=== PATIENT | female | born 1945 | race Hispanic/Latino ===

== ENCOUNTER → 2018-02-16 | Outpatient (CLI) | payer OTHER | LOC: RAH 10:51 | PROVIDERS: ATTEND Internal Medicine | DX: Z12.31 Encounter for screening mammogram for malignant neoplasm of breast (principal) | CPT/HCPCS: 77067 ==

== ENCOUNTER → 2018-04-13 | Outpatient (CLI) | payer OTHER ==
[~2018-04-13] MED LIST: IOPAMIDOL-370 100 ML VIAL IV ONE
== END | disposition home or self-care (01) ==
LOC: OIH 08:18
PROVIDERS: ATTEND Internal Medicine Cardiovascular Disease
DX: I70.1 Atherosclerosis of renal artery (principal); I70.0 Atherosclerosis of aorta; Z90.710 Acquired absence of both cervix and uterus
CPT/HCPCS: 74175; Q9967

== ENCOUNTER → 2020-03-09 | Outpatient (CLI) | payer OTHER | END | disposition home or self-care (01) | LOC: SHCH 11:15 | PROVIDERS: ATTEND Internal Medicine Cardiovascular Disease | DX: R01.1 Cardiac murmur, unspecified (principal) | CPT/HCPCS: 93306; 93356 ==

== ENCOUNTER → 2020-03-22 | Outpatient (CLI) | payer OTHER | END | disposition home or self-care (01) | LOC: SHCH 08:51 | PROVIDERS: ATTEND Internal Medicine Cardiovascular Disease | DX: R09.89 Other specified symptoms and signs involving the circulatory and respiratory systems (principal) | CPT/HCPCS: 93880; 93975 ==

== ENCOUNTER → 2020-09-07 | Outpatient (CLI) | payer OTHER | END | disposition home or self-care (01) | LOC: RAH 12:42 | PROVIDERS: ATTEND Internal Medicine | DX: K57.30 Diverticulosis of large intestine without perforation or abscess without bleeding (principal); R10.12 Left upper quadrant pain; J98.11 Atelectasis; I70.8 Atherosclerosis of other arteries | CPT/HCPCS: 74176 ==

== ENCOUNTER → 2020-10-13 | Outpatient (CLI) | payer OTHER | END | disposition home or self-care (01) | LOC: RAH 07:47 | PROVIDERS: ATTEND Internal Medicine Gastroenterology | DX: K83.8 Other specified diseases of biliary tract (principal); R93.2 Abnormal findings on diagnostic imaging of liver and biliary tract | CPT/HCPCS: 74181 ==

== ENCOUNTER 2020-11-10 07:25 | Day surgery (SDC) | payer OTHER ==
[~2020-11-10] VITALS: Ht 157.5 cm; Wt 64.9 kg
[2020-11-10] VITALS (21 sets, daily range): BP systolic 127–161; BP diastolic 59–83
[~2020-11-10 07:25] MED LIST changes: -IOPAMIDOL-370 100 ML VIAL IV ONE; +SODIUM CHLORIDE 0.9% 1000ML 1,000 ML IV ONE
[2020-11-10] MEDS ORDERED: AMLO2.5T4 PO (09:04)
[2020-11-10] MEDS ORDERED: ASPI-1197 PO (09:04)
[2020-11-10] MEDS ORDERED: SIMV-43 PO (09:04)
[2020-11-10] MEDS ORDERED: OMEP40CA13 PO (09:04)
[2020-11-10] MEDS ORDERED: METO-408 PO (09:04)
[2020-11-10] MEDS ORDERED: BENA40TA9 PO (09:04)
[2020-11-10] MEDS ORDERED: INDOMETHACIN 50 MG SUPP.RECT RC SCH (09:15)
[2020-11-10] MEDS ORDERED: IOHEXOL-350 50ML VIAL IV ONE (11:01)
[2020-11-10] MEDS ORDERED: ROCURONIUM 10MG/1ML SYR 10 MG/ML ML ONE (11:04)
[2020-11-10] MEDS ORDERED: FENTANYL CITRATE PF 50 MCG/1 ML 2ML VIAL ONE (11:04)
[2020-11-10] MEDS ORDERED: PROPOFOL 10 MG/ML 20ML VIAL IV ONE (11:04)
[2020-11-10] MEDS ORDERED: SUCCINYLCHOLINE 200MG/10ML SYR ONE (11:04)
[2020-11-10] MEDS ORDERED: LIDOCAINE PF 2% 5ML ABBOJECT ONE (11:04)
[2020-11-10] MEDS ORDERED: ONDANSETRON HCL 4 MG/2 ML VIAL ONE (11:05)
[2020-11-10] MEDS ORDERED: EPINEPHRINE 1 MG/ML AMPULE ONE (12:05)
[2020-11-10] MEDS ORDERED: FAMOTIDINE/PF 20 MG/2 ML VIAL IV ONE (12:20)
== END 2020-11-10 14:01 | disposition home or self-care (01) ==
LOC: ENDO 07:25 → DAH 07:25 → ENDO 14:01
PROVIDERS: ATTEND Internal Medicine Gastroenterology
DX: K83.8 Other specified diseases of biliary tract (principal); R93.2 Abnormal findings on diagnostic imaging of liver and biliary tract; Z20.828 Contact with and (suspected) exposure to other viral communicable diseases; R74.8 Abnormal levels of other serum enzymes; I10 Essential (primary) hypertension; E78.5 Hyperlipidemia, unspecified; Z88.8 Allergy status to other drugs, medicaments and biological substances; Z79.899 Other long term (current) drug therapy; Z98.890 Other specified postprocedural states; Z79.82 Long term (current) use of aspirin; Z90.710 Acquired absence of both cervix and uterus; Z91.018 Allergy to other foods; Z86.010 Personal history of colon polyps; Z87.442 Personal history of urinary calculi; Z98.49 Cataract extraction status, unspecified eye; Z87.19 Personal history of other diseases of the digestive system
CPT/HCPCS: 43262; 43264; 74330; A4215 ×2; A4222; A4223; A4606; A4657 ×2; A4663; C1769; C1773; C9803; J0171; J0330; J2001; J2405; J2704; J3010; J3490; J7030; Q9967; U0003; 43259

== ENCOUNTER → 2021-03-22 | Outpatient (CLI) | payer MEDICARE ==
[~2021-03-22] MED LIST changes: +AMLO2.5T4 PO; +ASPI-1197 PO; +BENA40TA9 PO; +METO-408 PO; +OMEP40CA13 PO; +SIMV-43 PO; -SODIUM CHLORIDE 0.9% 1000ML 1,000 ML IV ONE
== END | disposition home or self-care (01) ==
LOC: RAH 14:50
PROVIDERS: ATTEND Internal Medicine
DX: M79.662 Pain in left lower leg (principal); Z96.652 Presence of left artificial knee joint
CPT/HCPCS: 73560; 93971

== ENCOUNTER → 2021-12-26 | Outpatient (CLI) | payer MEDICARE ==
[~2021-12-26] MED LIST changes: -BENA40TA9 PO; +BENA40TA92 PO; -OMEP40CA13 PO; +OMEP40CA21 PO
== END | disposition home or self-care (01) ==
LOC: SHCH 09:42
PROVIDERS: ATTEND Internal Medicine Cardiovascular Disease
DX: I70.203 Unspecified atherosclerosis of native arteries of extremities, bilateral legs (principal); I10 Essential (primary) hypertension
CPT/HCPCS: 93306; 93925

== ENCOUNTER → 2022-07-04 | Outpatient (CLI) | payer MEDICARE | END | disposition home or self-care (01) | LOC: RAH 14:33 | PROVIDERS: ATTEND Internal Medicine | DX: R07.81 Pleurodynia (principal) | CPT/HCPCS: 71101 ==

== ENCOUNTER → 2023-03-11 | Outpatient (CLI) | payer MEDICARE | END | disposition home or self-care (01) | LOC: RAH 13:04 | PROVIDERS: ATTEND Internal Medicine Endocrinology, Diabetes & Metabolism | DX: E04.2 Nontoxic multinodular goiter (principal) | CPT/HCPCS: 76536 ==

== ENCOUNTER → 2023-04-03 | Outpatient (CLI) | payer MEDICARE | END | disposition home or self-care (01) | LOC: RAH 13:55 | PROVIDERS: ATTEND Internal Medicine | DX: R07.81 Pleurodynia (principal) | CPT/HCPCS: 71046; 71100 ==

== ENCOUNTER → 2024-01-15 | Outpatient (CLI) | payer MEDICARE | END | disposition home or self-care (01) | LOC: RAH 09:55 | PROVIDERS: ATTEND Nurse Practitioner Family | DX: M47.816 Spondylosis without myelopathy or radiculopathy, lumbar region (principal); M54.6 Pain in thoracic spine | CPT/HCPCS: 72070 ==

== ENCOUNTER → 2024-03-09 | Outpatient (CLI) | payer MEDICARE | END | disposition home or self-care (01) | LOC: RAH 10:58 | PROVIDERS: ATTEND Internal Medicine Endocrinology, Diabetes & Metabolism | DX: E04.2 Nontoxic multinodular goiter (principal) | CPT/HCPCS: 76536 ==

== ENCOUNTER → 2024-03-10 | Outpatient (CLI) | payer MEDICARE | END | disposition home or self-care (01) | LOC: RAH 12:03 | PROVIDERS: ATTEND Internal Medicine | DX: M79.661 Pain in right lower leg (principal); R60.0 Localized edema | CPT/HCPCS: 93971 ==

== ENCOUNTER 2024-03-23 08:28 | Day surgery (SDC) | payer MEDICARE ==
[2024-03-23] VITALS (10 sets, daily range): BP systolic 115–140; BP diastolic 57–75; PULSE 65–78; RESP 14–18
[~2024-03-23] VITALS: Ht 152.4 cm; Wt 64.9 kg
[2024-03-23] MEDS: 0.9%NACL 1000ML 1,000 ML IV ONE (06:12)
[~2024-03-23 08:28] MED LIST changes: -ASPI-1197 PO; -BENA40TA92 PO; +LISI40TA9 PO; -OMEP40CA21 PO; +ROSU40TA21 PO; -SIMV-43 PO; +[UNRECOGNIZED DRUG - OTHER] OP
[2024-03-23] MEDS ORDERED: PROPOFOL 10 MG/ML 20ML VIAL IV ONE (09:37)
== END 2024-03-23 10:48 | disposition home or self-care (01) ==
LOC: ENDO 08:28 → DAH 08:28 → EDSTATUS 08:45 → ENDO 10:48
PROVIDERS: ATTEND Internal Medicine Gastroenterology
DX: R10.13 Epigastric pain (principal); K29.50 Unspecified chronic gastritis without bleeding; K31.A0 Gastric intestinal metaplasia, unspecified; K31.89 Other diseases of stomach and duodenum; K44.9 Diaphragmatic hernia without obstruction or gangrene; K21.9 Gastro-esophageal reflux disease without esophagitis; I10 Essential (primary) hypertension; R10.10 Upper abdominal pain, unspecified; E78.5 Hyperlipidemia, unspecified; K31.84 Gastroparesis; K50.90 Crohn's disease, unspecified, without complications; R14.0 Abdominal distension (gaseous); Z91.041 Radiographic dye allergy status; Z88.8 Allergy status to other drugs, medicaments and biological substances; Z82.49 Family history of ischemic heart disease and other diseases of the circulatory system; Z80.9 Family history of malignant neoplasm, unspecified; Z86.010 Personal history of colon polyps; Z79.82 Long term (current) use of aspirin; Z79.899 Other long term (current) drug therapy; Z98.49 Cataract extraction status, unspecified eye; Z90.49 Acquired absence of other specified parts of digestive tract; Z90.711 Acquired absence of uterus with remaining cervical stump; Z98.890 Other specified postprocedural states
CPT/HCPCS: 43239; J7030 ×2; J2704; A4620; A4215 ×2; A4223; A7002; A4222; A4221; A4663; A4606; J3490

== ENCOUNTER → 2024-04-09 | Outpatient (CLI) | payer MEDICARE | END | disposition home or self-care (01) | LOC: RAH 10:43 → EDSTATUS 11:00 | PROVIDERS: ATTEND Internal Medicine Gastroenterology | DX: R14.0 Abdominal distension (gaseous) (principal); R10.10 Upper abdominal pain, unspecified; R14.2 Eructation | CPT/HCPCS: 78264; A9541 ==

== ENCOUNTER → 2024-04-21 | Outpatient (CLI) | payer MEDICARE ==
[~2024-04-21] MED LIST changes: -ROSU40TA21 PO; +ROSU40TA70 PO
== END | disposition home or self-care (01) ==
LOC: RAH 15:26
PROVIDERS: ATTEND Clinical Nurse Specialist Family Health
DX: M16.11 Unilateral primary osteoarthritis, right hip (principal); M25.551 Pain in right hip; M70.71 Other bursitis of hip, right hip
CPT/HCPCS: 73502

== ENCOUNTER → 2024-09-16 | Outpatient (CLI) | payer MEDICARE ==
[~2024-09-16] MED LIST changes: -ROSU40TA70 PO; +ROSU40TA88 PO
== END | disposition home or self-care (01) ==
LOC: RAH 13:10
PROVIDERS: ATTEND Internal Medicine
DX: M19.032 Primary osteoarthritis, left wrist (principal); M25.532 Pain in left wrist
CPT/HCPCS: 73110

== ENCOUNTER 2025-02-09 23:07 | Emergency (ER) | payer MEDICARE ==
[~2025-02-09] VITALS: Ht 165.1 cm; Wt 74.8 kg
[2025-02-09 23:39] LABS: BASOPHILS # (AUTO) 0.03 K/uL (0.00-0.20); BASOPHILS % (AUTO) 0.3 % (0.0-5.0); EOSINOPHILS # (AUTO) 0.08 K/uL (0.00-0.70); EOSINOPHILS % (AUTO) 0.7 % (0.0-8.0); HEMATOCRIT 41.9 % (36-48); IMMATURE GRANULOCYTE ABSOLUTE 0.04 K/uL (0-1); LYMPHOCYTES # (AUTO) 2.6 K/uL (1.0-4.8); LYMPHOCYTES % (AUTO) 23.8 % (21.0-51.0); MEAN CORPUSCULAR HEMOGLOBIN 30.9 pg (27.0-33.0); MEAN CORPUSCULAR HGB CONC 32.9 g/dL (32.0-36.0); MEAN CORPUSCULAR VOLUME 93.9 fL (79-99); MONOCYTES % (AUTO) 9.3 % (3.0-13.0); NEUTROPHILS % (AUTO) 65.5 % (40.0-77.0); PLATELET COUNT (AUTO) 175 K/uL (130-400); RED BLOOD CELL COUNT(AUTO) 4.46 MIL/uL (4.00-5.50); RED CELL DISTRIBUTION WIDTH 13.5 % (11.0-15.5); WHITE BLOOD COUNT (AUTO) 10.7 K/uL (4.8-10.8)
[2025-02-09 23:46] LABS: CREATININE 0.7 mg/dL (0.5-1.0); POTASSIUM 3.3 mmol/L (3.5-5.1)
[2025-02-09 23:49] LABS: APPEARANCE,URINE CLEAR (CLEAR); BILIRUBIN,URINE NEGATIVE (NEGATIVE); COLOR,URINE COLORLESS (YELLOW); GLUCOSE, URINE (UA) NEGATIVE (NEGATIVE); KETONES,URINE NEGATIVE (NEGATIVE); LEUKOCYTE ESTERASE ,URINE 75 Leu/uL (NEGATIVE); NITRATE,URINE NEGATIVE (NEGATIVE); OCCULT BLOOD,URINE NEGATIVE (NEGATIVE); PROTEIN,URINE NEGATIVE (NEGATIVE); UROBILINOGEN,URINE 0.2 mg/dL (0.2-1.0)
[2025-02-09] MEDS: morPHINE 4 MG SYG IVP ONE (23:59)
[2025-02-10] MEDS: ondanSETRON 4MG INJ IVP ONE
[2025-02-10] MEDS: FAMOTIDINE 20MG TAB PO ONE
[2025-02-10] MEDS: ASPIRIN 325MG TAB PO ONE
[2025-02-10 00:04] LABS: ADD UA MICROSCOPIC YES
[2025-02-10 00:05] LABS: BACTERIA,URINE FEW /HPF (None Seen); RBC,URINE 0-1 /HPF (0-1); SQUAMOUS EPITHELIAL CELL,UR RARE /HPF (0-2)
--- NOTE | 2025-02-10 00:13 | ERN ---
ED Note History of Present Illness Stated Complaint: CHEST Chief Complaint: Chest Pain Time Seen by MD: 23:23 Dictation: This is a 79-year-old female who presented to the emergency room with complaints of chest pain. She stated that the pain started today in the morning around 11:00 a.m.. The pain is mostly in the right lower chest area a day increases with movement. She tried to rest and the pain recurred in the evening she also states that she has some tenderness to touch. No history of any fall but she did play volleyball on Friday. No fever chills or rigors no pleurisy no cough sputum or hemoptysis. No diaphoresis tachycardia Temperature 98.6 pulse 94 respirations 20 blood pressure 181/99 with a pulse oximetry of 97% on room air Her chronic medical problems include hypertension, hypercholesterolemia, gastroesophageal reflux and history of a multinodular goiter Allergies: Coded Allergies: Iodine and Iodide Containing Produc (Unverified Allergy, Unknown, seiz ures, 11/06/20) potassium (Unverified Allergy, Unknown, burn total body , 11/06/20) Home Meds Reported Medications [[employer] Vitamin] No Conflict Check, OP BID 03/22/24 Lisinopril (Lisinopril) 40 Mg Tablet, 40 MG PO HS, TAB 03/22/24 Rosuvastatin Calcium (Rosuvastatin Calcium) 40 Mg Tablet, 40 MG PO AM, TAB 03/22/24 Amlodipine Besylate (Amlodipine Besylate) 2.5 Mg Tablet, 2.5 MG PO HS, TAB 11/10/20 Metoprolol Succinate (Metoprolol Succinate) 25 Mg Tab.er.24h, 25 MG PO DAILY, TAB 11/10/20 Past Medical History Past Medical History: GERD, High Cholesterol, Hypertension Surgical History: Cholecystectomy Family History: Negative Social History: Negative History: Not Applicable RN Note Reviewed/Agreed w/PFSH: Yes Review of System Dictation Constitutional: Negative for fever,chills, and weight loss Eyes: Negative for injury, pain,redness, and discharge ENT: Negative for injury,pain or swelling Cardiovascular: Negative for chest pain, palpitations, and edema chest wall pain and tenderness Respiratory: Negative for shortness of breath, cough, and wheezing, Abdomen/GI: Negative for abdominal pain, nausea, vomiting, diarrhea, and constipation Back: Negative for injury and pain : Negative for injury, bleeding and discharge MS/Extremity: Negative for injury and deformity Skin: Negative for rash, and discoloration Neuro: Negative for headache, weakness, numbness, tingling, and seizure Psych: Negative for suicide ideation, homicidal ideation, and hallucinations Initial Vital Sign VS Vital Signs Date Time Temp Pulse Resp B/P (MAP) Pulse Ox O2 Delivery O2 Flow Rate FiO2 02/09/25 23:10 98.6 94 20 181/99 97 Room Air 02/09/25 23:45 0 21 Physical Exam Dictation General: awake, alert, NAD Head/Face: Normocephalic, atraumatic Eyes: PERRL, EOMI, vision at baseline ENT: oral cavity clear, TMs clear, no signs of infection Neck: Trachea midline, supple, no nuchal rigidity Cardiovascular: RRR, normal S1/S2, No MRGs, no JVD tenderness to palpation in the lower chest. Very reproducible pain even with movement. Respiratory: CTAB, no respiratory distress, No rales or wheezes Abdomen: Soft, non-tender, non-distended, normal bowel sounds, no guarding or rebound. Skin: Warm, dry, normal turgor, no rash MS/Extremity: Pulses equal, no cyanosis, neurovascular intact, FROM Neuro: COAx4, GCS 15, strength 5/5, CN 2-12 intact, normal cerebellar exam, normal gait, Psych: Normal behavior, mood, and affect normal Extremities-trace edema without any palpable cords, Homans sign is negative Results (Laboratory/Radiology) Laboratory/Radiology Laboratory Tests Test 02/09/25 23:32 02/09/25 23:39 White Blood Count 10.7 K/uL (4.8-10.8) Red Blood Count 4.46 MIL/uL (4.00-5.50) Hemoglobin 13.8 g/dL (12.0-16.0) Hematocrit 41.9 % (36-48) Mean Corpuscular Volume 93.9 fL (79-99) Mean Corpuscular Hemoglobin 30.9 pg (27.0-33.0) Mean Corpuscular Hemoglobin Concent 32.9 g/dL (32.0-36.0) Red Cell Distribution Width 13.5 % (11.0-15.5) Platelet Count 175 K/uL (130-400) Mean Platelet Volume 9.8 fL (7.5-10.5) Immature Granulocyte % (Auto) 0.4 % (0-1) Neutrophils (%) (Auto) 65.5 % (40.0-77.0) Lymphocytes (%) (Auto) 23.8 % (21.0-51.0) Monocytes (%) (Auto) 9.3 % (3.0-13.0) Eosinophils (%) (Auto) 0.7 % (0.0-8.0) Basophils (%) (Auto) 0.3 % (0.0-5.0) Neutrophils # (Auto) 7.0 K/uL (1.8-7.7) Lymphocytes # (Auto) 2.6 K/uL (1.0-4.8) Monocytes # (Auto) 1.0 K/uL (0.1-1.0) Eosinophils # (Auto) 0.08 K/uL (0.00-0.70) Basophils # (Auto) 0.03 K/uL (0.00-0.20) Absolute Immature Granulocyte (auto 0.04 K/uL (0-1) Nucleated Red Blood Cells 0.0 % (0.0-0.19) Sodium Level 141 mmol/L (136-145) Potassium Level 3.3 mmol/L (3.5-5.1) L Chloride Level 105 mmol/L (101-111) Carbon Dioxide Level 33 mmol/L (21-32) H Blood Urea Nitrogen 16 mg/dL (7-18) Creatinine 0.7 mg/dL (0.5-1.0) Glomerular Filtration Rate Calc 89 mL/min (>90) Random Glucose 104 mg/dL (70-105) Total Calcium 9.1 mg/dL (8.5-10.1) Total Creatine Kinase 90 U/L (21-232) Troponin I High Sensitivity < 4 ng/L (4-50) L B-Type Natriuretic Peptide 6 pg/mL (0-100) Urine Color COLORLESS (YELLOW) Urine Appearance CLEAR (CLEAR) Urine pH 7.0 (5.0-8.0) Urine Specific Wickes 1.004 (1.001-1.031) Urine Protein NEGATIVE mg/dL (NEGATIVE) Urine Glucose (UA) NEGATIVE mg/dL (NEGATIVE) Urine Ketones NEGATIVE mg/dL (NEGATIVE) Urine Occult Blood NEGATIVE (NEGATIVE) Urine Nitrate NEGATIVE (NEGATIVE) Urine Bilirubin NEGATIVE mg/dL (NEGATIVE) Urine Urobilinogen 0.2 mg/dL (0.2-1.0) Urine Leukocyte Esterase 75 Pankaj/uL (NEGATIVE) H Urine RBC 0-1 /HPF (0-1) Urine WBC 6-10 /HPF (0-1) H Urine Squamous Epithelial Cells RARE /HPF (0-2) Urine Bacteria FEW /HPF (None Seen) Labs Reviewed?: Yes ED Course ED Course Orders Procedure Category Date Status Time Cbc With Differential LAB 02/09/25 Complete 23:23 B-Type Natriuretic LAB 02/09/25 Complete Peptide 23:23 Chest 1vw RAD 02/09/25 Taken 23:23 12 Lead Ekg Tracing- EKG 02/09/25 Logged Technical 23:23 Morphine 4mg Syg PHA 02/09/25 Complete (Morphine 4mg Syg) 23:30 Ondansetron 4mg Inj PHA 02/09/25 Complete (Zofran 4mg Inj) 23:30 Creatine Kinase, Total LAB 02/09/25 Complete 23:23 Troponin I High LAB 02/09/25 Complete Sensitivity 23:23 Aspirin 325mg Tab PHA 02/09/25 Complete (Aspirin 325mg Tab) 23:30 Urinalysis Profile LAB 02/09/25 Complete 23:23 Basic Metabolic Panel LAB 02/09/25 Complete 23:23 Famotidine 20mg Tab PHA 02/09/25 Complete (Pepcid 20mg Tab) 23:30 Culture Urine NICO 02/10/25 In Process 00:04 Ketorolac PHA 02/10/25 Complete Tromethamine 15mg/Ml 01:00 Current Medications Medications (Trade) Dose Ordered Sig/Gely Route PRN Reason Start Time Stop Time Status Last Admin Dose Admin Aspirin (Aspirin 325mg Tab) 325 mg ONCE ONCE PO 02/09/25 23:30 02/09/25 23:31 DC 02/10/25 00:00 Famotidine (Pepcid 20mg Tab) 40 mg ONCE ONCE PO 02/09/25 23:30 02/09/25 23:31 DC 02/10/25 00:00 Ketorolac Tromethamine (toRADol) 15 mg ONCE ONCE IV 02/10/25 01:00 02/10/25 01:01 DC 02/10/25 01:11 Morphine Sulfate (morPHINE 4MG SYG) 2 mg ONCE ONCE IVP 02/09/25 23:30 02/09/25 23:31 DC 02/09/25 23:59 Ondansetron HCl (zoFRAN 4MG INJ) 4 mg ONCE ONCE IVP 02/09/25 23:30 02/09/25 23:31 DC 02/10/25 00:00 Vital Signs Date Time Temp Pulse Resp B/P (MAP) Pulse Ox O2 Delivery O2 Flow Rate FiO2 02/10/25 01:26 98.1 64 16 128/63 99 Room Air* 0 21 02/09/25 23:45 98.2 74 18 153/64 98 Room Air* 0 21 02/09/25 23:10 98.6 94 20 181/99 97 Room Air We will perform diagnostic labs, advanced imaging and administer medications according to the patient's complaint. Once the results are available, will review and personally interpreted the labs to rule out any acute life- threatening emergency the trach require immediate intervention and treatment. I will then re-evaluate the patient after treatment and diagnostic exams have return to determine whether the patient requires any further testing, can safely be discharged home or need further admission to hospital for additional treatment and evaluation. Labs reviewed CBC is with a normal limits BNP 7 showed a potassium of 3.3 CK 90 troponins negative brain natriuretic peptide less than 10. Urinalysis was abnormal with mild leuko esterase. Chest x-ray shows mild blunting of the left costophrenic angle but otherwise no acute infiltrate. 12:39 a.m. patient stated that the morphine did not help and she still feels extremely sore. Trial of Toradol was given 8:06 p.m. pain is better. We will discharge her to home and patient stated that she already has meloxicam at home. We will also give a few days of Macrobid for UTI HEART Score Response (Comments) Value History: Low suspicion (0) 0 EKG: Normal 0 Age: > 65yrs (+2) 2 Risk Factors: 1-2 risk factors (+1) 1 Initial Troponin: Normal limit (0) 0 HEART Score Risk: Low Risk for MACE (1-3) Total 3 Medical Decision Making MDM MDM: Differential diagnosis: Chest wall pain, costochondritis, musculoskeletal pain, esophagitis, unstable angina Rationale: Tests considered and ordered secondary to shared decision making include: Previous outside records reviewed: Old ER visits. Risk of complication and/or morbidity or mortality of patient management: None Medications-Per medication reconciliation Need for hospitalization: Patient does not meet criteria for hospitalization. Need for emergency major/minor surgery: No There are no social concerns with this patient. Prescription drug management Prescriptions will include symptomatic care Patient's prior external medical records from other ER visits were reviewed by me as indicated. Prior testing and results from previous visits were reviewed. Prior tests were taken into account with medical decision making and resource utilization, independent historian/historians were used to obtain complete medical history. I independently interpreted the test that were performed, results were reviewed by me and considered findings on radiology if ordered. Medical management and examination interpretation discussions were had by me with other qualified healthcare professionals as indicated for the patient's care. Problem List Problem List: (1) Chest wall pain (2) Chest wall tenderness (3) UTI (urinary tract infection) DX & DISP Disposition: Discharge Departure Impression: Primary Impression: Chest wall pain Additional Impressions: Tenderness of chest wall, UTI (urinary tract infection) Condition: Stable Scripts Nitrofurantoin Monohyd/M-Cryst (Macrobid 100 mg Capsule) 100 Mg Capsule 1 CAP PO BID for 7 Days, #14 CAP 0 Refills Prov: JESIKA VILLATORO MD 02/10/25 Tramadol Hcl (Tramadol HCl) 50 Mg Tablet 50 MG PO TID for pain, #15 TAB Prov: JESIKA VILLATORO MD 02/10/25 Additional Instructions: Patient and the caregiver have been informed of all the diagnostic tests and the imaging conducted during the today's visit to the emergency room and has verbalized understanding of the results I have personally reviewed and interpreted all diagnostic exams performed here in the ER today as well as the vital signs documented by the nursing staff. The patient is now being discharged to home and should follow up with the primary care physician or the specialist as directed by the ER staff. Follow-up with primary care provider in 1 to 2 days. Take medications as directed here in the emergency room. Okay to continue home medications unless otherwise discussed during your visit in the emergency room today. Return to your nearest emergency room if symptoms worsen or if there is no improvement. Call 911 if you need immediate assistance. Take Tylenol or Motrin over -the-counter as needed and if no contraindications are present. Increase oral hydration. A wound culture or urine culture was ordered here in the emergency room department please follow-up with primary care provider and advise them to get repeat ports from our facility. If you had any Shai wrap/splints that were applied here, please do not remove them until you see your primary care or specialty. Referrals: LINNETTE QUINTERO MD (PCP) JESIKA VILLATORO MD Feb 10, 2025 00:13
[2025-02-10 00:26] LABS: B-TYPE NATRIURETIC PEPTIDE 6 pg/mL (0-100)
[2025-02-10] MEDS: ketOROlac 15MG/ML VIAL (15MG/ML) IV ONE (01:11)
[2025-02-10] MEDS ORDERED: TRAM50TA4 PO (02:02)
[2025-02-10] MEDS ORDERED: NITR100C4 PO (02:12)
[2025-02-10 02:21] VITALS: BP 134/69; PULSE 64; RESP 18; TEMP 98; O2SAT 100
[2025-02-10] MEDS: hydroMORPHone 0.5 MG SYG (0.5MG/0.5ML) IVP ONE (02:28)
--- NOTE | 2025-02-10 06:57 | EKG ---
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
--- NOTE | 2025-02-10 08:27 | HMCIMG ---
Exam Type: CHEST 1VW Clinical Information: chest pain Comparison: None Findings: The lungs are clear of infiltrates. The heart is normal in size. The bony and soft tissue structures of the chest are unremarkable. Impression: Clear lungs.
== END 2025-02-10 03:16 | disposition home or self-care (01) ==
LOC: EDH 23:07
DX: R07.89 Other chest pain (principal); N39.0 Urinary tract infection, site not specified; E78.00 Pure hypercholesterolemia, unspecified; I10 Essential (primary) hypertension; K21.9 Gastro-esophageal reflux disease without esophagitis; Z79.899 Other long term (current) drug therapy; Z88.8 Allergy status to other drugs, medicaments and biological substances; Z90.49 Acquired absence of other specified parts of digestive tract; Z91.041 Radiographic dye allergy status
CPT/HCPCS: 99285; 96374; 71045; 96375 ×2; 82550; 84484; 80048; 83880; 85025; 87086; 81001; 36415; 93005; J2405; J2270; J1885; J1171

== ENCOUNTER → 2025-06-13 | Outpatient (CLI) | payer MEDICARE ==
[~2025-06-13] MED LIST changes: +AEC81 PO; +LISI40TA15 PO; -LISI40TA9 PO; -METO-408 PO; +METO25TA6 PO; -[UNRECOGNIZED DRUG - OTHER] OP
--- NOTE | 2025-06-14 07:08 | HMCIMG ---
EXAMINATION: ULTRASOUND OF THE THYROID. CLINICAL HISTORY: Follow up of thyroid nodules. COMPARISON: Ultrasound of the thyroid dated 03/09/2024. TECHNIQUE: Transverse and longitudinal images were obtained through both lobes and the isthmus of the thyroid. FINDINGS: The thyroid gland is normal in caliber with homogenous tissue echotexture. The right thyroid lobe measures 4.6 x 1.9 x 1.9 cm and the left thyroid lobe measures 3.6 x 2.0 x 1.7 cm in the craniocaudal, AP, and transverse dimensions respectively. The isthmus measures 0.20 cm in AP dimension. Right lobe: There is a hypoechoic mixed solid cystic nodule that measures 1.3 x 1.2 x 1.1 cm at the upper pole (TR4). There is a hypoechoic mixed solid cystic nodule that measures 0.9 x 1.0 x 0.9 cm at the mid pole (TR4). There is a hypoechoic solid nodule that measures 0.4 x 0.2 x 0.3 cm at the mid pole with macro calcification (TR4). Left lobe: There is an isoechoic mixed solid cystic nodule that measures 1.3 x 0.9 x 1.1 cm at the upper pole (TR2). There is a hypoechoic solid nodule that measures 0.4 x 0.3 x 0.3 cm at the mid pole (TR4). No significantly enlarged lymph nodes. IMPRESSION: Nodules in both lobes of the thyroid. No significant interval changes. TI-RADS follow up recommendations: TR1: no FNA required TR2: no FNA required TR3: more than or equal to 1.5 cm follow up, more than or equal to 2.5 cm FNA follow up: 1, 3 and 5 years TR4: more than or equal to 1.0 cm follow up, more than or equal to 1.5 cm FNA follow up: 1, 2, 3 and 5 years TR5: more than or equal to 0.5 cm follow up, more than or equal to 1.0 cm FNA annual follow up for up to 5 years /[place]
== END | disposition home or self-care (01) ==
LOC: RAH 09:58
PROVIDERS: ATTEND Internal Medicine Endocrinology, Diabetes & Metabolism
DX: E04.2 Nontoxic multinodular goiter (principal)
CPT/HCPCS: 76536

== ENCOUNTER → 2025-08-23 | Outpatient (CLI) | payer MEDICARE ==
--- NOTE | 2025-08-25 14:47 | HMCIMG ---
CLINICAL INDICATION: Asymptomatic menopausal state COMPARISON: None available TECHNIQUE: Bone densitometry is performed of the lumbar spine and left hip. FINDINGS: Total BMD of lumbar spine is 1.082 g/cm2 with a T-score of 0.3 and Z-score is 2.9. Total BMD of left hip is 0.941 g/cm2 with a T-score of -0.2 and Z-score is 1.8. FRAX SCORE: The 10 year fracture risk for a major osteoporotic fracture and hip fracture not reported T score at or above -1.0 IMPRESSION: 1. Normal lumbar spine and left hip 2. Would recommend follow-up in 2 years World Health Organization criteria for BMD interpretation classify patients as Normal (T-score at or above -1.0), Osteopenic (T-score between -1.0 and -2.5), or Osteoporotic (T-score at or below -2.5). FRAX SCORE: A. All treatment decisions require clinical judgment and consideration of individual patient factors, including patient preferences, comorbidities, previous drug use, risk factors not captured in the FRAX model (e.g., frailty, falls, vitamin D deficiency, increased bone turnover, interval significant decline in bone density) and possible [id number]-estimation of fracture risk by FRAX. B. In addition, the NOF Guide recommends that FDA-approved medical therapies be considered in postmenopausal women and men age greater than or equal to 50 years with a: i. Hip or vertebral (clinical or morphometric) fracture. ii. T-score of less than or equal to -2.5 at the spine or hip. iii. Ten-year fracture probability by FRAX of greater than or equal to 3% for hip fracture of greater than or equal to 20% for major osteoporotic fracture.
== END | disposition home or self-care (01) ==
LOC: RAH 11:11
PROVIDERS: ATTEND Clinical Nurse Specialist Family Health
DX: Z78.0 Asymptomatic menopausal state (principal)
CPT/HCPCS: 77080